=== PATIENT | female | born 1995 | race African-American/Black ===

== ENCOUNTER → 2016-11-11 | Outpatient (CLI) | payer OTHER ==
[2016-07-16 17:04] VITALS: BP 115/74
--- NOTE | 2016-11-11 10:02 | US ---
HISTORY: 20 week Study: OB ultrasound greater than 14 weeks Comparison: None available Technique: Multiple grayscale and color flow Doppler images of the pelvis were obtained with focused evaluation of the fetus. Findings: A single living intrauterine gestation is identified with heart tones of 152 beats per minute. A cephalic presentation is observed. The placenta is posterior. Amniotic fluid appears grossly norm al. [facility] reports visualization of the nose and lips, bladder, kidneys, stomach, extremities , profile, spine, diaphragm, four-chamber heart, three-vessel cord and cord insertion. Value (cm) Estimated Gestational Age BPD 5.8 23 weeks 6 days HC 21.01 23 weeks 1 day AC 18.2 23 weeks 0 days FL 4.06 23 weeks 1 day Average age by ultrasound: 23 weeks 2 days LEATHA by ultrasound: 03/08/2017 Estimated weight: 565 g (1.25 lb) IMPRESSION: Single living intrauterine gestation measuring 23 weeks 2 days with heart rate 152 bpm as deta iled above. No sonographic abnormalities identified. Reported By:
== END ==
LOC: RAD 08:37
PROVIDERS: ATTEND Obstetrics & Gynecology Obstetrics
DX: Z34.92 Encounter for supervision of normal pregnancy, unspecified, second trimester (principal)